=== PATIENT | female | born 1960 | race Caucasian/White ===

== ENCOUNTER 2017-12-23 06:43 | Day surgery (SDC) | payer OTHER ==
[2017-12-22 14:29] LABS: Absolute Lymphocytes (CBC) 0.5 K/uL (0.7-4.9); Absolute Monocytes 0.8 K/uL (0.1-1.3); Absolute Neutrophil 2.5 K/uL (1.8-8.0); Basophils % 2.6 % (0-1.3); Eosinophils % 0.2 % (0-4.4); Hematocrit 25.4 % (36.0-45.0); Lymphocytes % 12.8 % (15.3-44.8); MCH 31.4 pg (27.0-35.0); MCV 93.3 fL (80-100); MPV 8.8 fL (7.6-11.3); Monocytes % 19.5 % (3.3-12.3); RBC Red Blood Cell Count 2.72 M/uL (3.86-4.86)
[2017-12-22 14:52] LABS: Blood Morphology Comment NOT SEEN (NOT SEEN); Platelet Estimate ADEQ; Urine White Blood Cell Casts OK
[2017-12-23] MEDS ORDERED: LIDOCAINE 1% 20 ML MDV ONE (07:31)
[2017-12-23] MEDS ORDERED: HEPARIN 5000 UNIT/ML 1 ML VIAL ONE (07:31)
[2017-12-23] MEDS ORDERED: NS 0.9% VIAL 20 ML ONE (07:31)
[2017-12-23] MEDS ORDERED: Ringers Lactate 1,000 ML IV ONE ×2 (07:44→09:29)
[2017-12-23] MEDS ORDERED: CEFAZOLIN/SWI 1gm 1 GM/10 ML SYR ONE (07:45)
[2017-12-23] MEDS ORDERED: MIDAZOLAM HCL 2 MG/2 ML INJ ONE (08:52)
[2017-12-23] MEDS ORDERED: PROPOFOL 200 MG/20 ML VIAL IV ONE ×3 (08:52→08:55)
[2017-12-23] MEDS ORDERED: FENTANYL CITR 100 MCG/2 ML ONE (08:52)
[2017-12-23] MEDS ORDERED: LIDOCAINE 2% MPF 5 ML VIAL ONE (08:52)
--- NOTE | 2017-12-23 09:14 | RAD REPORT ---
EXAM DESCRIPTION: RAD - Fluoroscopy <1 Hour - 12/23/2017 9:07 am CLINICAL HISTORY: Venous catheter insertion. COMPARISON: None. FINDINGS: Fluoroscopic imaging is submitted from placement of a venous catheter. Details of the pro cedure not available.
[2017-12-23] MEDS: MORPHINE 4 MG/ML SYR ONE ×3 (09:20→09:26)
--- NOTE | 2017-12-23 09:25 | RAD REPORT ---
EXAM DESCRIPTION: RAD - Chest Single View - 12/23/2017 9:15 am CLINICAL HISTORY: Venous catheter placement. COMPARISON: None. FINDINGS: Portable technique limits examination quality. Left-sided venous catheter has been placed with its tip in the SVC. No pneumothorax is evident. The h eart is mildly prominent in size. No displaced fractures. IMPRESSION: No pneumothorax is seen.
[2017-12-23] MEDS ORDERED: HYDROCODONE/APAP 7.5/325 MG TAB PO ONE (09:45)
[2017-12-23] MEDS ORDERED: HYDROCODONE/APAP 7.5/325 MG TAB ONE (10:04)
--- NOTE | 2017-12-24 02:09 | OP ---
Date of Procedure: 12/23/2017 Surgeon: Pb Up MD Preoperative Diagnosis: Right breast cancer. Postoperative Diagnosis: Right breast cancer. Procedures: Placement of left internal jugular Port-A-Cath and interpretation of intraoperative fluo roscopy. Estimated Blood Loss: Minimal. Specimen: None. Findings: Normal anatomy. Anesthesia: MAC. Complications: None. Disposition: The patient tolerated the procedure in stable condition and taken to Recovery in good g eneral condition. Procedure In Detail: The patient was brought to the OR and placed in the supine position. MAC anest hesia was begun. The patient was prepped and draped in the usual sterile fashion. Lidocaine 1% infi ltrated locally. An 18-gauge needle was used to access the left IJ vein. Guidewire was passed. Pos ition was confirmed with fluoroscopy. Counterincision was made on the left anterior chest 3 cm in le ngth. Subcutaneous tissue divided. Pocket created. Tunneling device was used to tunnel the cathete r between the 2 wounds. Seldinger technique used. Tip of the catheter placed in the SVC under fluor oscopy. Then, catheter cut to appropriate size and attached to the Port-A-Cath device. Port-A-Cath device was attached to subcutaneous tissue with 3-0 Vicryl. Then, 3-0 chromic was used to approximat e the subcutaneous tissue and close the skin. The catheter was flushed with heparin and packed with heparin with good blood flow. Sterile dressing was applied. The patient was awakened and taken to Recovery in good general condition. Chest x-ray has been ordered. If the chest x-ray is okay, the p atient will be discharged to home. /MODL Voice ID: [id number] Report ID: [id number]
--- NOTE | 2017-12-24 02:15 | DS ---
Date of Discharge: 12/23/2017 Disposition: Home. Condition: Stable. Discharge Medications And Instructions: Resume home meds and diet. Activity as tolerated. No heavy lifting. Remove outer dressing in 2 days. Shower. Keep wound clean and dry. Follow up in my offi ce in a week. Call for appointment. [facility]. Tylenol No. 3 one tablet p.o. q.4 p.r.n. pain. ANN/TESS Voice ID: [id number] Report ID: [id number]
== END 2017-12-23 10:21 | disposition home or self-care (01) ==
LOC: OR 06:43
PROVIDERS: ATTEND Surgery
PROC: 0JH60WZ Insertion of Totally Implantable Vascular Access Device into Chest Subcutaneous Tissue and Fascia, Open Approach (ICD-10-PCS; principal; 2017-12-23 08:30)
DX: C50.911 Malignant neoplasm of unspecified site of right female breast (principal); I10 Essential (primary) hypertension; K21.9 Gastro-esophageal reflux disease without esophagitis; E66.9 Obesity, unspecified
CPT/HCPCS: 36415; 71045; 76000; 85025; C1788; J0690; J1644; J2250; J3010

== ENCOUNTER 2018-07-18 07:24 | Day surgery (SDC) | payer OTHER ==
[2018-07-15 09:17] LABS: Absolute Lymphocytes (CBC) 0.7 K/uL (0.7-4.9); Absolute Monocytes 0.5 K/uL (0.1-1.3); Absolute Neutrophil 2.7 K/uL (1.8-8.0); Basophils % 1.1 % (0-1.3); Eosinophils % 3.1 % (0-4.4); Hematocrit 33.4 % (36.0-45.0); Lymphocytes % 16.4 % (15.3-44.8); MCH 33.8 pg (27.0-35.0); MCV 94.1 fL (80-100); MPV 8.5 fL (7.6-11.3); Monocytes % 11.8 % (3.3-12.3); RBC Red Blood Cell Count 3.55 M/uL (3.86-4.86)
[2018-07-15 09:26] LABS: Potassium 3.9 mmol/L (3.5-5.1)
[2018-07-18] MEDS ORDERED: CEFAZOLIN/SWI 1gm 1 GM/10 ML SYR ONE (07:51)
[2018-07-18] MEDS ORDERED: Ringers Lactate 1,000 ML IV ONE (07:51)
[2018-07-18] MEDS ORDERED: FENTANYL CITR 100 MCG/2 ML ONE (08:16)
[2018-07-18] MEDS ORDERED: MIDAZOLAM HCL 2 MG/2 ML INJ ONE (08:16)
[2018-07-18] MEDS ORDERED: LIDOCAINE 1% MPF 5 ML VIAL ONE (08:16)
[2018-07-18] MEDS ORDERED: PROPOFOL 200 MG/20 ML VIAL IV ONE (08:16)
[2018-07-18] MEDS ORDERED: KETOROLAC 30 MG/ML INJ ONE (08:46)
--- NOTE | 2018-07-18 19:25 | OP ---
Date of Procedure: 07/18/2018 Surgeon: Pb Up MD Preoperative Diagnosis: Breast cancer. Postoperative Diagnosis: Breast cancer. Procedure: Removal of left chest Port-A-Cath. Estimated Blood Loss: Minimal. Specimen: Port-A-Cath device. Findings: Normal anatomy. Anesthesia: MAC. Complications: None. The patient tolerated the procedure in stable condition, taken to the Recovery in good general condit ion. Procedure In Detail: The patient was brought to the OR and placed in supine position. MAC anesthesi a was begun. The patient was prepped and draped in usual sterile fashion. Lidocaine 1% was infiltra leif locally. A 15-blade was used to make 3 cm incision over the previous insertion site. Subcutaneo us tissue was divided. The port was identified and freed from the surrounding tissue with sharp and blunt dissection and removed intact and then sent to Pathology for identification. Wound was irrigat ed. Bleeding was controlled with cautery. A 3-0 chromic was used to reapproximate the subcutaneous tissue and close the skin. Sterile dressing was applied. The patient was awakened and taken to [facility] in good general condition. Discharge Note: The patient will go to Day Surgery and home when stable. Disposition: Home. Condition: Stable. Discharge Instructions: Resume home medications and diet. Activity as tolerated. Remove outer dres sing in 2 days. Shower. Keep Steri-Strips on at all times. Follow up in my office in 2 weeks. Mark kinsey for appointment. Tylenol No. #3 one tablet p.o. q.4h p.r.n. pain. /MODL Voice ID: [id number] Report ID: [id number]
== END 2018-07-18 09:50 | disposition home or self-care (01) ==
LOC: OR 07:24
PROVIDERS: ATTEND Surgery
PROC: 0JPT0WZ Removal of Totally Implantable Vascular Access Device from Trunk Subcutaneous Tissue and Fascia, Open Approach (ICD-10-PCS; principal; 2018-07-18 08:30)
DX: Z45.2 Encounter for adjustment and management of vascular access device (principal); C50.911 Malignant neoplasm of unspecified site of right female breast; I10 Essential (primary) hypertension; K21.9 Gastro-esophageal reflux disease without esophagitis
CPT/HCPCS: 36415; 80048; 85025; 88300; J0690; J2250; J3010

== ENCOUNTER 2018-08-19 02:19 | Emergency (ER) | payer OTHER ==
[2018-08-19 03:10] LABS: Urine Blood 3+ (NEG); Urine Glucose TRACE (NEG); Urine Protein 3+ (NEG); Urine Specific Gravity 1.025 (1.005-1.030); Urine pH 6.5 (5.0-7.0)
[2018-08-19 03:10] LABS: Urine Bacteria 20-50 /HPF (<20); Urine Culture Reflex Order NOT NEEDED; Urine Mucus MOD /HPF (NONE SEEN); Urine RBC >50 /HPF (NONE SEEN)
[2018-08-19] MEDS ORDERED: NA CHLORIDE 0.9% 100 ML IV ONE (03:41)
[2018-08-19] MEDS ORDERED: CEFTRIAXONE 1000 MG/VIAL ONE (03:41)
--- NOTE | 2018-08-19 03:50 | ER ---
Nurse's Notes [facility] Name: Holly Ornelas Age: 57 yrs Sex: Female : 1960 Arrival Date: 08/19/2018 Time: 02:22 Bed 17 Private MD: Nick Hernandez R Diagnosis: Cystitis, unspecified with hematuria Presentation: 08/19 02:32 Presenting complaint: Patient states: Pt reports she has been having discomfort when ea she urinates. Transition of care: patient was not received from another setting of care. Onset of symptoms was August 19, 2018. Risk Assessment: Do you want to hurt yourself or someone else? Patient reports no desire to harm self or others. Initial Sepsis Screen: Does the patient meet any 2 criteria? No. Patient's initial sepsis screen is negative. Does the patient have a suspected source of infection? Yes: Dysuria/Frequency/Urgency/UTI. Care prior to arrival: None. 02:32 Method Of Arrival: Ambulatory ea 02:32 Acuity: KESHAWN 3 ea Triage Assessment: 02:56 General: Appears in no apparent distress. Behavior is calm, cooperative, appropriate ea for age. EENT: No signs and/or symptoms were reported regarding the EENT system. Neuro: Level of Consciousness is awake, alert, obeys commands, Oriented to person, place, time, situation. Cardiovascular: Patient's skin is warm and dry. Respiratory: Airway is patent Respiratory effort is even, unlabored, Respiratory pattern is regular, symmetrical. : Reports burning with urination, urgency, urinary frequency. Derm: Skin is pink, warm \T\ dry. Historical: - Allergies: 03:01 NKA; ea - Home Meds: 03:01 celecoxib 200 mg Oral cap 1 cap once daily [Active]; furosemide 20 mg Oral tab 1 tab ea once daily [Active]; lisinopril 10 mg Oral tab 1 tab once daily [Active]; omeprazole 40 mg Oral cpDR 1 cap once daily [Active]; - PMHx: 03:01 GERD; Hypertension; ea - PSHx: 03:01 ; eye surgery; bladders surgery; ea - Immunization history:: Adult Immunizations up to date. - Social history:: Smoking status: Patient/guardian denies using tobacco. - Family history:: not pertinent. - Ebola Screening: : No symptoms or risks identified at this time. - Hospitalizations: : No recent hospitalization is reported. Screenin:51 Abuse screen: Denies threats or abuse. Nutritional screening: No deficits noted. ea Tuberculosis screening: No symptoms or risk factors identified. Fall Risk None identified. Assessment: 03:02 Reassessment: see triage assessment. ea 03:46 Reassessment: Patient and/or family updated on plan of care and expected duration. Pain ea level reassessed. Patient is alert, oriented x 3, equal unlabored respirations, skin warm/dry/pink. Provider at bedside updating pt on plan of care. 04:11 Reassessment: Patient and/or family updated on plan of care and expected duration. Pain ea level reassessed. Patient is alert, oriented x 3, equal unlabored respirations, skin warm/dry/pink. Discharge instruction given to patient, verbalized the understanding of instruction. Vital Signs: 02:32 BP 154 / 85; Pulse 75; Resp 18; Temp 99.1; Pulse Ox 98% on R/A; Weight 83.01 kg; Height ea 5 ft. 1 in. (154.94 cm); Pain 8/10; 03:58 BP 148 / 70; Pulse 70; Resp 18; Pulse Ox 99% ; ea 02:32 Body Mass Index 34.58 (83.01 kg, 154.94 cm) ea ED Course: 02:22 Patient arrived in ED. es 02:23 Nick Hernandez MD is Private Physician. es 02:25 Kiko Lawrence MD is Attending Physician. rn 02:32 Martine Pierce RN is Primary Nurse. ea 02:32 Patient has correct armband on for positive identification. Bed in low position. Call ea light in reach. 02:56 Triage completed. ea 02:59 CT completed. Patient tolerated procedure well. Patient moved to CT via wheelchair. Patient moved back from CT. 02:59 Arm band placed on right wrist. ea 03:00 CT Stone Protocol In Process Unspecified. EDMS 03:30 Inserted saline lock: 20 gauge in right antecubital area, using aseptic technique. ea Blood collected. 03:48 Nick Hernandez MD is Referral Physician. rn 04:12 No provider procedures requiring assistance completed. IV discontinued, intact, ea bleeding controlled, No redness/swelling at site. Pressure dressing applied. Administered Medications: 03:46 Drug: Rocephin - (cefTRIAXone) 1 grams Route: IVPB; Infused Over: 30 mins; Site: right ea antecubital; 04:05 Follow up: Response: No adverse reaction; IV Status: Completed infusion paul Outcome: 03:49 Discharge ordered by . rn 04:13 Discharged to home ambulatory. paul 04:13 Condition: improved 04:13 Discharge instructions given to patient, Instructed on discharge instructions, follow up and referral plans. medication usage, Demonstrated understanding of instructions, follow-up care, medications. 04:13 Patient left the ED. ea Addendum: 08/22/2018 09:42 Addendum: Culture Results: Positive urine culture. No further action required. Phone s s call Attempt #1 no answer, left Certified letter sent to listed address for patient. Signatures: Dispatcher [employer] Linda Mcintosh, Kiko Wesley MD MD rn Smirch, Shelby, RN RN ss Antunez, Elena, RN RN ea
--- NOTE | 2018-08-19 03:51 | EDPHYS ---
Physician Documentation [facility] Name: Holly Ornelas Age: 57 yrs Sex: Female : 1960 Arrival Date: 08/19/2018 Time: 02:22 Bed 17 Private MD: Nick Hernandez R ED Physician Kiko Lawrence HPI: 08/19 02:34 This 57 yrs old Female presents to ER via Unassigned with complaints of rn Possible bladder infection. 02:34 The patient presents with pain that is acute. The symptoms are located in the low back. rn Onset: The symptoms/episode began/occurred 2 day(s) ago. The pain radiates to the abdomen. Modifying factors: The patient symptoms are alleviated by nothing, the patient symptoms are aggravated by nothing. Severity of symptoms: At their worst the symptoms were moderate, in the emergency department the symptoms have improved. The patient has not experienced similar symptoms in the past. Reports lower back pain, radiates around to abdomen, assoc with increased urinary frequency and small amount of hematuria. NO fever. No hx of kidney stones or UTI. . Historical: - Allergies: 03:01 NKA; ea - Home Meds: 03:01 celecoxib 200 mg Oral cap 1 cap once daily [Active]; furosemide 20 mg Oral tab 1 tab ea once daily [Active]; lisinopril 10 mg Oral tab 1 tab once daily [Active]; omeprazole 40 mg Oral cpDR 1 cap once daily [Active]; - PMHx: 03:01 GERD; Hypertension; ea - PSHx: 03:01 ; eye surgery; bladders surgery; ea - Immunization history:: Adult Immunizations up to date. - Social history:: Smoking status: Patient/guardian denies using tobacco. - Family history:: not pertinent. - Ebola Screening: : No symptoms or risks identified at this time. - Hospitalizations: : No recent hospitalization is reported. ROS: 02:34 Constitutional: Negative for fever, chills, and weight loss, Eyes: Negative for injury, rn pain, redness, and discharge, Neck: Negative for injury, pain, and swelling, Cardiovascular: Negative for chest pain, palpitations, and edema, Respiratory: Negative for shortness of breath, cough, wheezing, and pleuritic chest pain, Abdomen/GI: + lower abd pain Back: + lower back pain : + hematuria and increased frequency MS/Extremity: Negative for injury and deformity, Neuro: Negative for headache, weakness, numbness, tingling, and seizure. Exam: 02:34 Constitutional: This is a well developed, well nourished patient who is awake, alert, rn and in no acute distress. Walked to room without assistance. Head/Face: Normocephalic, atraumatic. ENT: MMM Respiratory: No increased work of breathing, no retractions or nasal flaring. Abdomen/GI: soft, mild suprapubic tenderness, no rebound/masses Back: No CVAT MS/ Extremity: Pulses equal, no cyanosis. Neurovascular intact. Full, normal range of motion. Equal circumference. Neuro: Awake and alert, GCS 15, oriented to person, place, time, and situation. Cranial nerves II-XII grossly intact. Motor strength 5/5 in all extremities. Sensory grossly intact. Cerebellar exam normal. Normal gait. Vital Signs: 02:32 BP 154 / 85; Pulse 75; Resp 18; Temp 99.1; Pulse Ox 98% on R/A; Weight 83.01 kg; Height ea 5 ft. 1 in. (154.94 cm); Pain 8/10; 03:58 BP 148 / 70; Pulse 70; Resp 18; Pulse Ox 99% ; ea 02:32 Body Mass Index 34.58 (83.01 kg, 154.94 cm) ea MDM: 02:25 Patient medically screened. rn 03:47 Differential diagnosis: Ureterolithiasis UTI. 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 Counseling: I had a detailed discussion with the patient and/or guardian regarding: the historical points, exam findings, and any diagnostic results supporting the discharge/admit diagnosis, lab results, radiology results, the need for outpatient follow up, to return to the emergency department if symptoms worsen or persist or if there are any questions or concerns that arise at home. Response to treatment: the patient's symptoms have mildly improved after treatment, and as a result, I will discharge patient. Special discussion: I discussed with the patient/guardian in detail that at this point there is no indication for admission to the hospital. It is understood, however, that if the symptoms persist or worsen the patient needs to return immediately for re-evaluation. Based on the history and exam findings, there is no indication for further emergent testing or inpatient evaluation. I discussed with the patient/guardian the need to see the primary care provider for further evaluation of the symptoms. ED course: Pt likely with recently passed kidney stone, + UTI, stable vitals, will dc home with abx for cystitis. . 08/19 02:25 Order name: Urine Microscopic Only rn 08/19 02:25 Order name: Urine Culture rn 08/19 02:59 Order name: Urine Dipstick--Ancillary (enter results) mw2 08/19 03:10 Order name: CBC with Diff rn 08/19 03:10 Order name: Basic Metabolic Panel rn 08/19 03:10 Order name: Blood Culture Adult (2) rn 08/19 02:25 Order name: Urine Dipstick-Ancillary (obtain specimen); Complete Time: 02:51 rn 08/19 02:34 Order name: CT Stone Protocol rn 08/19 03:10 Order name: IV Start; Complete Time: 03:30 rn Administered Medications: 03:46 Drug: Rocephin - (cefTRIAXone) 1 grams Route: IVPB; Infused Over: 30 mins; Site: right ea antecubital; 04:05 Follow up: Response: No adverse reaction; IV Status: Completed infusion ea Disposition: 08/19/18 03:49 Discharged to Home. Impression: Cystitis, unspecified with hematuria. - Condition is Stable. - Discharge Instructions: Urinary Tract Infection, Adult. - Prescriptions for cefpodoxime 100 mg Oral Tablet - take 1 tablet by ORAL route every 12 hours for 10 days take with food; 20 tablet. Pyridium 200 mg Oral Tablet - take 1 tablet by ORAL route every 8 hours for 3 days; 9 tablet. - Medication Reconciliation Form, Thank You Letter, Antibiotic Education, Prescription Opioid Use form. - Follow up: Nick Hernandez MD; When: As needed; Reason: Recheck today's complaints, Re-evaluation by your physician. - Problem is new. - Symptoms have improved. Signatures: Dispatcher [employer] EDMS Kiko Lawrence MD MD rn Antunez, Elena, RN RN ea Corrections: (The following items were deleted from the chart) 04:13 03:49 08/19/2018 03:49 Discharged to Home. Impression: Cystitis, unspecified with ea hematuria. Condition is Stable. Forms are Medication Reconciliation Form, Thank You Letter, Antibiotic Education, Prescription Opioid Use. Follow up: Nick Hernandez; When: As needed; Reason: Recheck today's complaints, Re-evaluation by your physician. Problem is new. Symptoms have improved. rn
[2018-08-19 04:29] LABS: Absolute Lymphocytes (CBC) 0.6 K/uL (0.7-4.9); Absolute Neutrophil 7.9 K/uL (1.8-8.0); Basophils % 0.5 % (0-1.3); Eosinophils % 0.6 % (0-4.4); Hematocrit 35.6 % (36.0-45.0); Lymphocytes % 6.2 % (15.3-44.8); MCH 33.6 pg (27.0-35.0); MPV 8.7 fL (7.6-11.3); Monocytes % 10.6 % (3.3-12.3); RBC Red Blood Cell Count 3.74 M/uL (3.86-4.86)
--- NOTE | 2018-08-19 10:16 | RAD REPORT ---
EXAM DESCRIPTION: CT - Stone Protocol - 08/19/2018 4:37 am CLINICAL HISTORY: Flank pain. back pain, abd pain, hematuria COMPARISON: No comparisons TECHNIQUE: Axial images were obtained without oral or IV contrast. Lack of contrast limits solid org an and vascular assessment. The [id number] spans the entirety of the system partially obscuring uppermost abdomen and lung bases. Coronal reformatted images were obtained and reviewed. All CT scans are performed using dose optimization technique as appropriate and may include automated exposure control or mA/KV adjustment according to patient size. FINDINGS: The lower lung gardner are clear. Imaged portions of the liver and spleen show no suspicious findings on non-contrast imaging. The panc reas and adrenal glands are normal. No pathologic lymphadenopathy in the abdomen or pelvis. Moderate right hydronephrosis and hydroureter is present. No obstructing calculus is seen. No left-si ded stone or hydronephrosis. Significantly thickened bladder wall. No bowel obstruction, free air, free fluid or abscess. Normal appendix noted. No significant bony abnormality. IMPRESSION: Moderate right hydronephrosis and hydroureter is present without obstructing calculus id entified. Recent passage of a stone is a possibility. Significantly thickened bladder wall is present which can be seen in chronic inflammation or malignan cy. Follow-up cystoscopy may be of value for direct visualization.
== END 2018-08-19 04:13 | disposition home or self-care (01) ==
LOC: ER 02:19
DX: N30.91 Cystitis, unspecified with hematuria (principal); I10 Essential (primary) hypertension
CPT/HCPCS: 36415; 74176; 76377; 80048; 81003; 81015; 85025; 87040; 87077; 87086; 87088; 87186; 96365; 99284

== ENCOUNTER 2023-12-07 09:28 | Observation (INO) | payer OTHER ==
[2023-12-03 15:01] LABS: Absolute Basophils 0.1 K/uL (0-0.5); Absolute Eosinophils 0.2 K/uL (0-0.5); Absolute Lymphocytes (CBC) 1.6 K/uL (0.7-4.9); Absolute Monocytes 0.7 K/uL (0.1-1.3); Absolute Neutrophil 4.1 K/uL (1.8-8.0); Basophils % 1.4 % (0-1.3); Eosinophils % 2.4 % (0-4.4); Hemoglobin 11.7 g/dL (12.0-15.0); MCH 32.1 pg (27.0-35.0); MCHC 34.3 g/dL (32.0-36.0); MCV 93.6 fL (80-100); Monocytes % 10.4 % (3.3-12.3); Neutrophils % 61.8 % (41.7-73.7); Platelets 203 thou/uL (152-406); RBC Red Blood Cell Count 3.63 M/uL (3.86-4.86); Red Cell Distribution Width 14.4 % (12.1-15.2)
[2023-12-03 15:09] LABS: Specific Gravity 1.014 (1.005-1.030); Urine Bacteria None Seen /HPF (<20); Urine Bilirubin NEGATIVE (Negative); Urine Blood Negative (Negative); Urine Clarity Turbid (Clear); Urine Color Light-Yellow (Yellow); Urine Glucose NEGATIVE (Negative); Urine Protein NEGATIVE (Negative); Urine RBC <5 /HPF (None Seen); Urine Urobilinogen Normal (Normal); Urine pH 7.5 (5.0-7.0)
[2023-12-03 15:16] LABS: PT Prothrombin Time 11.4 SECONDS (9.5-12.5); PTT, Activated Partial Thromb 33.3 SECONDS (24.3-36.9); Protime INR 1.04
[2023-12-03 15:21] LABS: Albumin 3.6 g/dL (3.4-5.0); Albumin/Globulin Ratio 1.1 (1.1-1.8); Anion Gap 6.1 mEq/L (5.0-15.0); Bilirubin Total 0.3 mg/dL (0.2-1.0); Globulin 3.3 g/dL (2.3-3.5); Potassium 4.1 mEq/L (3.5-5.1); Protein, Total 6.9 g/dL (6.4-8.2)
[2023-12-07] MEDS ORDERED: dexAMETHasone 4 MG/ML VIAL ONE ×2 (09:38→12:07)
[2023-12-07] MEDS ORDERED: BUPIVACAINE 0.25% PF 30 ML VIAL ONE (09:38)
[2023-12-07] MEDS ORDERED: EPINEPHRINE 1 MG/ML VIAL ONE (09:38)
[2023-12-07] MEDS: Ringers Lactate 1,000 ML IV ONE ×2 (09:45→14:27)
[2023-12-07] MEDS: CELECOXIB 100 MG CAPSULE ONE (10:35)
[2023-12-07] MEDS: Oxycodone HCl/Acetaminophen 5/325 MG TAB ONE (10:35)
[2023-12-07] MEDS: ACETAMINOPHEN 500 MG TAB ONE (10:35)
[2023-12-07] MEDS: GABAPENTIN 100 MG CAP ONE (10:35)
[2023-12-07] MEDS: dexAMETHasone 10 MG/ML VIAL ONE (10:41)
[2023-12-07] MEDS: MIDAZOLAM HCL 2 MG/2 ML INJ ONE (10:42)
[2023-12-07] MEDS: MAGNESIUM SULFATE 1 gm IVPB 1 GM/100 ML BAG IV ONE (10:42)
[2023-12-07] MEDS: DEXMEDETOMIDINE HCL 200 MCG/2 ML VIAL ONE (10:42)
[2023-12-07] MEDS: FENTANYL CITR 100 MCG/2 ML ONE ×2 (10:42→14:55)
[2023-12-07] MEDS: EPINEPHRINE 1 MG/ML VIAL ONE (10:42)
[2023-12-07] MEDS ORDERED: propofoL 200 MG/20 ML VIAL IV ONE (10:55)
[2023-12-07] MEDS ORDERED: LIDOCAINE 2% MPF 5 ML VIAL ONE (10:55)
[2023-12-07] MEDS ORDERED: ONDANSETRON 4 MG/2 ML VIAL ONE (10:55)
[2023-12-07] MEDS ORDERED: EPHEDRINE SULF 50 MG/ML VIAL ONE (11:57)
[2023-12-07] MEDS ORDERED: KETAMINE HCL IN 0.9 % NACL 50 MG/5 ML SYRINGE IV ONE (12:01)
[2023-12-07] MEDS: CEFAZOLIN SODIUM 2 GM/VIAL ONE (12:06)
[2023-12-07] MEDS: TRANEXAMIC ACID 1,000 MG/10 ML VIAL IV ONE ×2 (12:07→12:31)
[2023-12-07] MEDS ORDERED: DOCUSATE NA 100 MG CAP PO PRN (14:23)
[2023-12-07] MEDS ORDERED: ONDANSETRON 4 MG/2 ML VIAL IV PRN (14:23)
--- NOTE | 2023-12-07 14:23 | P.BOP ---
Preoperative diagnosis: left knee arthritis Postoperative diagnosis: same Primary procedure: left total knee Estimated blood loss: 100 ccs Anesthesia: General Transferred to: Recovery Room Condition: Good
--- OUTSIDE RECORDS SUMMARY | 2023-12-07 14:42 | XMS REPORT | Continuity of Care Document ---
Author Name Unknown Address [address] [facility] [place] [address] [facility] Address [address] [facility] [address] [place] [address] Care Team Providers Care Delivery Driver Assistant Name Role Phone PCP, PATIENT DOES NOT HAVE A Primary Care Physic sigrid Unavailable MEET LONG Attending Clinician Unavailabl e [email or web address]_S Attending Clinician Unavaila ble LUIS PETER Attending Clinician Unavailable Doctor Unassigned, [place] Attending Clinician U Meet Sesay MD Attending Clinician GABRIEL BARCLAY Attending Clinician Unavailable MEET LONG Admitting Clinician Unavailabl e [id number]_S Admitting Clinician Unavaila ble Payers Payer Name Policy Type Policy Number Effective Date Expirati on Date Source [id number] 2016 00:00:00 Allergies, Adverse Reactions, Alerts Allergy Name Allergy Type Status Severity Reaction(s) Onset Date Inactive Date Treating Clinician Comments Source ACETAMIN OPHEN-CO DEINE DRUG Active Other-Cmnt 05-15 00:00: 00 [facility] NO KNOWN ALLERGIE S Drug Class Active [facility] Encounters Start Date/Time End Date/Time Encounter Type Admission Type Attending Clinicians Care Facility Care Department Encounter ID Source 2021-07-25 08:46:16 Inpatient MEET LONG [facility] [id number] [facility] 2023-07-24 00:00:00 2023-07-24 00:00:00 Outpatient [email or web address] [id number] [facility] 2020-12-19 13:40:00 2020-12-19 13:40:00 Outpatient Tita ROMELUIS [facility] [id number] [facility] 2020-11-28 13:40:00 2020-11-28 13:40:00 Outpatient [facility] [id number] [facility] 2020-07-05 00:00:00 2020-07-05 00:00:00 Orders Only Doctor Unassigned, [place] [facility] [id number] 2020-06-17 13:43:44 2020-06-17 14:19:04 Office Visit Meet Long [facility] [id number] 2020-06-17 13:45:00 2020-06-17 13:45:00 Outpatient GABRIEL HAQ [facility] [id number] [facility] 2020-06-05 00:00:00 2020-06-05 00:00:00 Orders Only Doctor Unassigned, [place] [facility] [id number] 2020-05-15 14:00:00 2020-05-15 14:00:00 Outpatient R MEET LONG [facility] [id number] [facility] 2020-04-26 13:30:00 2020-04-26 13:30:00 Outpatient R MEET LONG [facility] [id number] [facility] 2020-04-24 13:00:00 2020-04-24 13:00:00 Outpatient R [facility] [id number] [facility] 2020-04-18 10:45:00 2020-04-18 10:45:00 Outpatient MEET BAR [facility] [id number] [facility] 2020-02-01 08:15:00 2020-02-01 08:15:00 Outpatient MEET BAR [facility] [id number] [facility] 2019-12-13 15:45:00 2019-12-13 15:45:00 Outpatient MEET BAR [facility] [id number] [facility] 2019-11-28 14:30:00 2019-11-28 14:30:00 Outpatient GABRIEL HAQ [facility] [id number] [facility] 2019-11-21 14:15:00 2019-11-21 14:15:00 Outpatient GABRIEL HAQ [facility] [id number] [facility] 2019-11-02 16:29:41 2019-11-02 23:59:00 Outpatient GABRIEL BARCLAY [facility] [id number] [facility]
--- NOTE | 2023-12-07 15:57 | OP ---
Date of Procedure: 12/07/2023 Surgeon: Ruben Rodriguez MD Preoperative Diagnosis: Left knee arthritis which has failed conservative management. Postoperative Diagnosis: Left knee arthritis which has failed conservative management. Procedure: Left total knee arthroplasty using the Vanguard system. Estimated Blood Loss: 100 cc. Complications: There were no complications. Indications For Operation: Ms. Ornelas is a 63-year-old female who has severe pain in her left knee. This has persisted despite extensive conservative care and is limiting her activities of daily wong ng. It is constantly painful. She has had a contralateral total knee done, I believe, and is doing well and desires total knee arthroplasty on the left side. Risks, benefits, and alternatives of proc edure discussed with the patient. She states she understands things as presented and wishes to proce ed. Description Of Procedure: The patient was taken to the operating room, placed in the supine position . She had previously had a block performed in the holding area. She undergoes general anesthesia an d a well-padded tourniquet was placed on superior left thigh. Left lower extremity was then prepped and draped in usual sterile fashion for the procedure. Following this, the leg was then elevated and gently exsanguinated using the Keith wrap. The knee was bent. Tourniquet was raised. A standard ant erior incision was taken down carefully through skin and soft tissues. Meticulous hemostasis being m aintained using Bovie electrocautery. This was slightly longer than normally used as she does have a fairly high BMI and quite a bit of adipose tissue. Following this, the extensor mechanism was expos ed using the correct level and superomedial border of the patella was marked with a marking pen. She then undergoes a standard medial parapatellar arthrotomy with liberation of approximately 30 cc of r ather normal-appearing synovial fluid. This allowed for visualization of the knee. There was an are a of chondral loss of the undersurface of the patella as well as [id number] changes of the medial c ompartment and some degenerative changes laterally, but not as severe. Following this, the ACL, PCL, medial and lateral menisci are removed and the intramedullary alignment guide was placed without dif ficulty. This was followed by cutting of the distal femur. It was then sized to a size 62.5. The r emainder of the cuts were then performed on the femur with the exception of the box. Attention was t hen turned to the tibia. She did lack a few degrees from full extension and had difficult flexion. The flexion was probably limited by habitus, so tibia cut was a little more generous than normal. Ho wever, after it was sized and trialed, it appears to come to full extension without difficulty and fu ll flexion and is definitely stable to varus and valgus stress and the flexion and extension gaps ruby eared to be good. Attention was then turned to the patella where it was calipered and then cut. It was then trialed. Resurfacing was applied. The knee was brought through a full range of motion, ruby ears to glide very well without sign of subluxation. After this, the tibia was punched with the cent er being at the medial third of the tibial tubercle. The box was then cut and the bony surfaces were prepped for cementation. There was some clean-up done with small areas of retained meniscus and at time of cementation, the surfaces were clean and dry. After this, the final components were then pablito krysten with the exception of the tibial polyethylene. The trial tibial polyethylene was used while the cement hardened. Any unsupported cement was removed. After this, the knee was brought through full range of motion and was again found to be stable and with good balance and good gliding of the patell a. This was selected as the final polyethylene, which was then placed with placement of a locking ba r. The wound was again copiously irrigated with jet lavage and the extensor mechanism was repaired b ack using heavy Ethibond sutures. This was again irrigated and the skin was closed using 2-0 nylon s utures followed by lena. The patient was then placed in a well-padded sterile dressing, awakened, and taken to the recovery room in good condition. There were no complications. SE/MODL Voice ID: [id number] Report ID: [id number]
[2023-12-07] MEDS: CEFAZOLIN 1 GM in NA CHLORIDE 0.9% 50 ML IVPB SCH (16:44)
[2023-12-07 18:04] VITALS: BMI 36.8
--- NOTE | 2023-12-07 20:54 | CON ---
Date of Consultation: 12/07/2023 Reason For Consultation: Medical management. History Of Present Illness: This is a 63-year-old very pleasant female patient who had left knee rep lacement surgery done today by Dr. Rodriguez and postoperatively consultation was requested for medic al management. When I saw the patient, she was lying in bed, not in any distress. Denied any nausea , vomiting. No chest pain. No shortness of breath. Allergies: NO KNOWN ALLERGIES. Medications: Anastrozole 1 mg daily, furosemide 20 mg daily, levocetirizine 5 mg daily, metoprolol s uccinate 25 mg daily, valsartan 320 mg daily, venlafaxine 150 mg daily, vitamin D3 1000 units daily. Review of Systems: Musculoskeletal: As mentioned above. All other systems reviewed and negative. Past Medical History: Chronic kidney disease, stage 3A. Hyperlipidemia. Leg edema. Hypertension. Osteoarthritis at multiple sites. Breast cancer. Obstructive sleep apnea. Allergic rhinitis. Vit gallagher D deficiency. Anemia. Past Surgical History: Right breast lumpectomy in 2017 for breast cancer. . Cystocele rep air with urethral sling in 2016. Right knee surgery in form of knee replacement in 2019. Family History: Father , had throat cancer. Mother , had lung cancer, COPD, hypertension. Sister with stroke and brother with cancer. Social History: Positive for smoking. Use of alcohol negative. Physical Examination: Vital Signs: Height 5 feet 1 inch, weight 195 pounds, temperature 97, pulse 66, respiratory rate 16, blood pressure 169/93, oxygen saturation 98%. General: Awake, alert, oriented, not in distress. HEENT: Head atraumatic, normocephalic. Conjunctivae nonerythematous. Sclerae white. Mouth, no thr ush or edema noted. Ears/Nose, no mass, lesion, discharge noted. Neck: Supple. No JVD, lymph nodes, bruit, thyromegaly noted. Lungs: Bilateral good equal air entry. Clear to auscultation. No rhonchi. No rales. Heart: Normal heart sounds, no murmur or gallop. Abdomen: Soft, bowel sounds normal. No guarding, rigidity, tenderness, mass, hepatosplenomegaly, dis tention, or bruit noted. Extremities: Left lower extremity has surgical dressing present. Skin: No rash, ulcer, cellulitis. Lymphatics: No lymph node enlargement in neck, supraclavicular, infraclavicular region. Neuro: No focal neurological deficit. Chest: Unremarkable. External Genitalia: Deferred. Rectal: Deferred. Laboratory Data: White count 6.6, hemoglobin 11.7, platelets 203, sodium 140, potassium 4.1, chlorid e 110, bicarb 28, BUN 11, creatinine 1, glucose 96. Liver function tests unremarkable. Urinalysis u nremarkable. Impression: 1.Hypertension. 2.Hyperlipidemia. 3.Chronic kidney disease, stage 3A. 4.Osteoarthritis, multiple sites. 5.Right breast cancer, involving upper outer quadrant. 6.Obstructive sleep apnea. 7.Allergic rhinitis. 8.Vitamin D deficiency. 9.Anemia, chronic, unspecified. Plan: We will go ahead and continue her home medications per order. For hypertension, she takes met oprolol and valsartan and we will continue that. Monitor blood pressure if necessary, make adjustmen t on medication. We will continue her venlafaxine per order. The patient is on Lovenox for DVT prop hylaxis. I will see her tomorrow for followup. Thank you very much for allowing me to participate in her care. RACHEAL/MODL Voice ID: [id number] Report ID: [id number]
[2023-12-08] MEDS: VALSARTAN 160 MG TAB ONE ×2 (00:28→00:31)
[2023-12-08] MEDS: VALSARTAN 160 MG TAB PO ONE (00:29)
[2023-12-08 03:59] LABS: Hematocrit 30.5 % (36.0-45.0); Hemoglobin 10.6 g/dL (12.0-15.0)
[2023-12-08] MEDS: ENOXAPARIN 30 MG/0.3 ML SQ SCH (05:04)
[2023-12-08] MEDS ORDERED: VENLAFAXINE HCL 37.5 MG TAB PO SCH (09:00)
[2023-12-08 10:00] VITALS: O2SAT 94
--- NOTE | 2023-12-08 10:22 | PN ---
Date of Progress Note: 12/08/2023 Subjective: The patient was seen this morning for followup. No new complaints or problems reported by her. She was lying in bed, not in distress. No nausea, vomiting. No chest pain, shortness of br eath. Objective: Vital Signs: Reviewed. HEENT: Unremarkable. Lungs: Clear to auscultation. Heart: Sounds normal. Abdomen: Soft. Bowel sounds normal. No guarding, rigidity, tenderness, distention. Extremities: No leg edema. Left leg surgical dressing present. Laboratory Data: Hemoglobin 10.6. Impression: 1.Hypertension. 2.Anemia, chronic. 3.Chronic kidney disease stage IIIA. 4.Osteoarthritis, multiple sites. Plan: The patient is medically stable, hemodynamically stable. She received her valsartan last nigh t and metoprolol this morning. From my standpoint of view, she is stable for discharge whenever her primary attending, Dr. Rodriguez, wants to discharge her and the patient to receive DVT prophylaxis a nd pain medication per him. I have instructed her that upon discharge, she should restart her previo usly prescribed home medications as before. RACHEAL/MODL Voice ID: [id number] Report ID: [id number]
[2023-12-08] MEDS: METOPROLOL XL 25 MG TAB PO SCH (10:30)
[2023-12-08] MEDS: VENLAFAXINE HCL 75 MG TABLET PO SCH (12:17)
[2023-12-08] MEDS: HYDROCODONE/APAP 7.5/325 MG TAB PO PRN (15:17)
[2023-12-08 19:42] VITALS: BP 144/65; TEMP 97.8
== END 2023-12-08 19:24 | disposition home health service (06) ==
LOC: OR 09:28 → 4TH 14:23
PROVIDERS: ADMIT Orthopaedic Surgery; ATTEND Orthopaedic Surgery
PROC: 0SRD069 Replacement of Left Knee Joint with Oxidized Zirconium on Polyethylene Synthetic Substitute, Cemented, Open Approach (ICD-10-PCS; principal; 2023-12-07 11:30)
DX: M17.12 Unilateral primary osteoarthritis, left knee (principal)
CPT/HCPCS: 85025; 81001; 36415 ×2; 85610; 88305; 88311; 85730; 85018; 85014; 80053; 97110; 97116 ×2; 97139; 97162; 97530; 94010; 27447; J3475; J2704; J1100 ×3; J2001; J1650 ×2; J2250; J3010 ×2; J0171 ×2; J2405; J7120 ×2; J0690 ×3; G0378; G0379